=== PATIENT | female | born 1990 | race American Indian/Alaskan Native ===

== ENCOUNTER 2021-09-05 16:06 | Emergency (ER) | payer MEDICAID ==
--- NOTE | 2021-09-05 17:03 | Emergency Department Report ---
ED General Adult HPI - General Chief complaint: Arrhythmia/Palpitations Stated complaint: PALPITATIONS Time Seen by Provider: 09/05/21 16:51 Source: patient, EMS ( EMS documentation not available at time of chart dictation ), RN notes reviewed, old records reviewed Mode of arrival: Stretcher Limitations: No Limitations - History of Present Illness Initial comments: The patient was evaluated in the emergency department for symptoms described in the history of present illness. He/she was evaluated in the context of the global COVID-19 pandemic, which necessitated consideration that the patient might be at risk for infection with the virus that causes COVID-19. Institutional protocols and algorithms that pertain to the evaluation of patients at risk for COVID-19 are in a state of rapid change based on information released by regulatory bodies including the CDC and federal and state organizations. These policies and algorithms were followed during the patient's care in the emergency department. Please note that these policies, procedures and recommendations changed on a rapid basis. This patient is a pleasant and cooperative 31-year-old female who presents to the emergency room today with a complaint of intermittent sensation of painless heart racing which is present for months. The this is a painless sensation. She currently denies headache, neck pain, chest pain, abdominal pain, shortness of breath, nausea, vomiting, diarrhea, urinary symptoms, hematemesis, bright red blood per rectum The patient does reports that she Is a recreational IV heroin abuser. She is interested in detox. She is not homicidal or suicidal. She denies other coingestions. She reports that she has access to clean needles and does not reuse needles. She is not experiencing hallucinations. No fevers or chills. Her primary complaint is intermittent palpitations. She does report that she does not consume caffeinated beverages -: month(s) Consistency: intermittent Improves with: none Worsens with: none Associated Symptoms: denies other symptoms - Related Data Previous Rx's Medication Instructions Recorded Last Taken Type Ondansetron [Zofran Odt] 4 mg PO Q4H #20 tab.rapdis 04/19/13 Unknown Rx Ferrous Sulfate [Feosol 325 MG tab] 325 mg PO BID #60 tablet 09/05/21 Unknown Rx Naloxone HCl [Narcan Nasal [place]] 4 mg NS PRN PRN #1 spray 09/05/21 Unknown Rx Ondansetron [Zofran Odt] 4 mg PO Q8HR PRN #20 tab.rapdis 09/05/21 Unknown Rx cloNIDine [Catapres] 0.1 mg PO BID PRN #30 tablet 09/05/21 Unknown Rx Allergies Allergy/AdvReac Type Severity Reaction Status Date / Time No Known Allergies Allergy Verified 09/05/21 16:29 ED Review of Systems ROS: Stated complaint: PALPITATIONS Other details as noted in HPI Comment: All other systems reviewed and negative Cardiovascular: palpitations ED Past Medical Hx - Past Medical History Hx Asthma: Yes Additional medical history: "hyperinsomnia" - Surgical History Additional Surgical History: stye removal right eye - Social History Smoking Status: Never Smoker Substance Use Type: None - Medications Home Medications: Home Medications Medication Instructions Recorded Confirmed Last Taken Type Ondansetron [Zofran Odt] 4 mg PO Q4H #20 tab.rapdis 04/19/13 Unknown Rx Ferrous Sulfate [Feosol 325 MG tab] 325 mg PO BID #60 tablet 09/05/21 Unknown Rx Naloxone HCl [Narcan Nasal [place]] 4 mg NS PRN PRN #1 spray 09/05/21 Unknown Rx Ondansetron [Zofran Odt] 4 mg PO Q8HR PRN #20 tab.rapdis 09/05/21 Unknown Rx cloNIDine [Catapres] 0.1 mg PO BID PRN #30 tablet 09/05/21 Unknown Rx ED Physical Exam - General Limitations: No Limitations General appearance: alert, in no apparent distress - Head Head exam: Present: atraumatic, normocephalic - Eye Eye exam: Present: normal appearance, EOMI. Absent: nystagmus - ENT ENT exam: Present: normal exam, normal orophraynx, mucous membranes moist, normal external ear exam - Neck Neck exam: Present: normal inspection, full ROM. Absent: tenderness, meningismus - Respiratory Respiratory exam: Present: normal lung sounds bilaterally. Absent: respiratory distress, wheezes, rales, rhonchi, stridor, decreased breath sounds - Cardiovascular Cardiovascular Exam: Present: regular rate, normal rhythm, normal heart sounds. Absent: bradycardia, tachycardia, irregular rhythm, systolic murmur, diastolic murmur, rubs, gallop - GI/Abdominal GI/Abdominal exam: Present: soft. Absent: distended, tenderness, guarding, rebound, rigid, pulsatile mass - Extremities Exam Extremities exam: Present: full ROM, pedal edema, other (2+ pulses noted in the bilateral upper and lower extremities. There is no palpable cord. negative Homans sign. Muscular compartments are soft. The pelvis is stable.). Absent: normal inspection (Track farfan noted to bilateral upper extremities. No evidence of superinfection, redness, pus or streaking.), calf tenderness - Back Exam Back exam: Present: normal inspection, full ROM. Absent: tenderness, CVA tenderness (R), CVA tenderness (L), paraspinal tenderness, vertebral tenderness - Neurological Exam Neurological exam: Present: alert, oriented X3, normal gait, other (No facial droop. Tongue midline. Extraocular movements intact bilaterally. Facial sensation intact to light touch in V1, V2, V3 distribution bilaterally. 5 and a 5 strength in 4 extremities. Sensation intact to light touch in 4 extremities.). Absent: motor sensory deficit - Psychiatric Psychiatric exam: Present: normal affect, normal mood. Absent: homicidal ideation, suicidal ideation - Skin Skin exam: Present: warm, dry, intact. Absent: rash ED Course Vital Signs 09/05/21 09/05/21 09/05/21 16:27 16:49 17:56 Temperature 98.2 F Pulse Rate 97 H 72 Respiratory 18 16 Rate Blood Pressure 131/85 100/63 [Left] O2 Sat by Pulse 100 96 100 Oximetry O2 Sat by Pulse Oximetry [ Digit-Finger] 09/05/21 18:21 Temperature Pulse Rate Respiratory Rate Blood Pressure [Left] O2 Sat by Pulse Oximetry O2 Sat by Pulse 100 Oximetry [ Digit-Finger] - Reevaluation(s) Reevaluation #1: 09/05/21 18:15 Differential diagnosis, including but not limited to: Electrolyte derangement, thyroid derangement, mitral valve prolapse, chronic heroin use, asymptomatic microcytic anemia, encounter for detox. Assessment and plan: 31-year-old female, who is not currently tachycardic, tachypneic or hypoxic, who denies DVT and pulmonary embolism risk factors, who is low risk by Wells criteria for pulmonary embolism, and PERC negative, with no fever, chills, or cardiac murmur, with a primary complaint of intermittent painless palpitations. Laboratory studies show microcytic anemia, likely secondary to diet and lifestyle. Chemistry unremarkable, EKG unremarkable. We have extensively discussed the recommendation to discontinue heroin consumption. I will discharge the patient with as needed Narcan, as needed Zofran, and as needed clonidine. We will also start the patient on iron sulfate tablets, and have instructed her on the need to closely follow-up with outpati ent primary care and/or cardiology, for intermittent tachycardia. She is clinically sober at this time, and does not meet criteria for 1013, 2013, or involuntary confinement. She is interested in pursuing detox. I have requested that mental health provided patient with outpatient detox resources. Patient is observed in this department for hours without clinical decompensation, and is suitable to follow-up as an outpatient. At the moment, she does not appear to have an emergent medical condition present. 09/05/21 19:17 The patient is seen and examined. She is in no acute distress. I discussed all findings with patient. She articulates understanding. All questions answered. Return precautions are reviewed. Start iron sulfate for microcytic anemia. This is likely secondary to diet and lifestyle. Discussed this with the patient. Start clonidine, Zofran. As needed Narcan. Outpatient resources are provided. Return precautions are reviewed. All questions answered - Pulse Oximetry Interpretation Digit-Finger Initial Pulse Oximetry Readin O2 Sat by Pulse Oximetry: 100 Actions Taken: none ED Medical Decision Making - Lab Data Result diagrams: 09/05/21 17:22 09/05/21 17:22 Vital Signs 09/05/21 09/05/21 09/05/21 16:27 16:49 17:56 Temperature 98.2 F Pulse Rate 97 H 72 Respiratory 18 16 Rate Blood Pressure 131/85 100/63 [Left] O2 Sat by Pulse 100 96 100 Oximetry Lab Results 09/05/21 09/05/21 09/05/21 Range/Units 17:22 17:22 17:22 WBC 5.1 (4.5-11.0) K/mm3 RBC 4.23 (3.65-5.03) M/mm3 Hgb 9.5 L (10.1-14.3) gm/dl Hct 29.5 L (30.3-42.9) % MCV 70 L (79-97) fl MCH 23 L (28-32) pg MCHC 32 (30-34) % RDW 19.2 H (13.2-15.2) % Plt Count 225 (140-440) K/mm3 PT 15.3 H (12.2-14.9) Sec. INR 1.06 (0.87-1.13) Sodium 135 L (137-145) mmol/L Potassium 4.0 (3.6-5.0) mmol/L Chloride 100.0 (98-107) mmol/L Carbon Dioxide 24 (22-30) mmol/L Anion Gap 15 mmol/L BUN 9 (7-17) mg/dL Glucose 99 (65-100) mg/dL Calcium 9.1 (8.4-10.2) mg/dL Magnesium 2.40 H (1.7-2.3) mg/dL Total Bilirubin 0.30 (0.1-1.2) mg/dL AST 14 (5-40) units/L ALT 7 (7-56) units/L Alkaline Phosphatase 63 (35-129) units/L Total Creatine Kinase 44 (30-135) units/L Total Protein 9.1 H (6.3-8.2) g/dL Albumin 3.4 L (3.9-5) g/dL Albumin/Globulin Ratio 0.6 % Salicylates (2.8-20.0) mg/dL 09/05/ Range/Units 17:22 WBC (4.5-11.0) K/mm3 RBC (3.65-5.03) M/mm3 Hgb (10.1-14.3) gm/dl Hct (30.3-42.9) % MCV (79-97) fl MCH (28-32) pg MCHC (30-34) % RDW (13.2-15.2) % Plt Count (140-440) K/mm3 PT (12.2-14.9) Sec. INR (0.87-1.13) Sodium (137-145) mmol/L Potassium (3.6-5.0) mmol/L Chloride (98-107) mmol/L Carbon Dioxide (22-30) mmol/L Anion Gap mmol/L BUN (7-17) mg/dL Glucose (65-100) mg/dL Calcium (8.4-10.2) mg/dL Magnesium (1.7-2.3) mg/dL Total Bilirubin (0.1-1.2) mg/dL AST (5-40) units/L ALT (7-56) units/L Alkaline Phosphatase (35-129) units/L Total Creatine Kinase (30-135) units/L Total Protein (6.3-8.2) g/dL Albumin (3.9-5) g/dL Albumin/Globulin Ratio % Salicylates 9.7 (2.8-20.0) mg/dL - EKG Data -: EKG Interpreted by Me EKG shows normal: sinus rhythm Rate: normal - EKG Data When compared to previous EKG there are: previous EKG unavailable 09/05/21 18:14 The EKG is interpreted at 17: 20 Sinus rhythm, with a rate of 80 bpm. Normal axis, normal P wave axis, high left ventricular voltage, intervals are within normal limits. This is not a STEMI. There is no prior for comparison. Critical care attestation.: If time is entered above; I have spent that time in minutes in the direct care of this critically ill patient, excluding procedure time. ED Disposition Clinical Impression: Microcytic anemia, Palpitations, Heroin abuse Disposition: HOME / SELF CARE / HOMELESS Is pt being admited?: No Does the pt Need Aspirin: No Condition: Good Instructions: Preventing Iron Deficiency Anemia, Adult, Finding Treatment for Addiction Additional Instructions: Recommend that patient avoid consumption of heroin, alcohol, tobacco, smoke products. Patient may use the Narcan as needed for opioid overdose. Use the Zofran as ne eded for nausea and vomiting. Take the clonidine as directed/needed for symptoms of opioid withdrawal, including abdominal cramping, nausea, vomiting, diarrhea. Follow-up with outpatient resources that are provided to the patient. Start the iron sulfate supplementation for anemia and presumed iron deficiency. Consume foods that are high in iron, such as green leafy vegetables and protein. Follow-up with a primary care doctor within the next month. Follow-up with a washtub worker helper for heart racing within the next 2 weeks. Long-term consumption of heroin may cause overdose, addiction, and may cause , disability, paralysis, loss of quality of life. Please return to the emergency room right away with new pain, worsened pain, migration of pain, projectile vomiting, change in mental status, confusion, inability tolerate liquid feeds, new, worsened or different symptoms not present on the initial emergency room evaluation Please follow-up with an outpatient mental health specialist within the next week. Avoid consumption of alcohol, tobacco, smoke products and recreational drugs. Please return to the emergency room right away with new pain, worsened pain, migration of pain, projectile vomiting, change in mental status, confusion, inability tolerate liquid feeds, new, worsened or different symptoms not present on the initial emergency room evaluation In case of an emergency, please contact the following numbers: [place] Crisis and Access Line: Number: Crisis Text Line: (Text START) Number: 613932 Suicide Prevention Line: Number: Emergency Number: 911 SUBSTANCE ABUSE PROGRAMS: [facility]: Location: [place], [place] [facility] Address: [address] [place] [address] [facility]: Address: [address] [place] [address] [facility]: Address: [address] [place] [address] [facility]: Address: [address] [place] [address] [facility] Address: [address] [place] [id number]. Please contact above numbers to attempt placement into free based program. Medicaid Programs: [facility]: Address: [address] [place] [address] [facility]: Address: [address] [place] [address] [facility] Agency Contacts To help [facility] Crises (30/09) [place] Crisis Line: Suicide Prevention Line: Crisis Text Line: Text ``START to 362275 Emergency: 911 Outpatient COMMUNITY Behavioral Health Resources: [place]: [facility] [address] [place], [place] [address] [place]: [facility] [address] [place] [address] Friday thru Friday - 8am - 5pm Call to schedule an assessment for mental health and substance abuse programs [facility] Address: [address], [place], [place] Friday thru Friday- 7am-2pm [facility] Address: [address] [place], [place] [address] Friday thru Friday: 8:30AM-5PM Prescriptions: cloNIDine [Catapres] 0.1 mg PO BID PRN #30 tablet PRN Reason: Nausea Ferrous Sulfate [Feosol 325 MG tab] 325 mg PO BID #60 tablet Naloxone HCl [Narcan Nasal [place]] 4 mg NS PRN PRN #1 spray PRN Reason: Opioid Reversal Ondansetron [Zofran Odt] 4 mg PO Q8HR PRN #20 tab.rapdis PRN Reason: Nausea Referrals: [facility] [Provider Group] - 3-5 Days [facility] - 3-5 Days [facility] [Outside] - 3-5 Days [facility] [Outside] - 3-5 Days Forms: Work/School Release Form(ED)
[2021-09-05 17:48] LABS: Hematocrit 29.5 % (30.3-42.9); Hemoglobin 9.5 gm/dl (10.1-14.3); Mean Corpuscular HGB Conc 32 % (30-34); Platelet Count 225 K/mm3 (140-440); Red Blood Count 4.23 M/mm3 (3.65-5.03); Red Cell Distribution Width 19.2 % (13.2-15.2)
[2021-09-05 17:50] LABS: Mean Corpuscular Volume 70 fl (79-97)
[2021-09-05 18:06] LABS: Alanine Aminotransferase 7 units/L (7-56); Albumin 3.4 g/dL (3.9-5); Blood Urea Nitrogen 9 mg/dL (7-17); Calcium 9.1 mg/dL (8.4-10.2); Hemolysis Index 0
[2021-09-05 18:11] LABS: INR 1.06 (0.87-1.13)
[2021-09-05 18:25] LABS: BUN/Creatinine Ratio 13
[2021-09-05 19:28] VITALS: BP 106/58
--- NOTE | 2021-09-06 10:35 | Electrocardiograph Report ---
[facility] Test Date: 2021-09-05 Test Time: 17:20:17 Pat Name: ANTOINETTE ANDERS Department: Room: Gender: F Library Supervisor: LUCAS : 1990 Requested By: GIL AMES Order Number: [id number] Reading MD: Calvin Gillette Measurements Intervals [place] Rate: 80 P: 83 SD: 131 QRS: 58 QRSD: 82 T: 31 QT: 356 QTc: 409 Interpretive Statements Sinus rhythm No previous ECG available for comparison Electronically Signed On 09-06-2021 10:34:41 EDT by Calvin Gillette
== END 2021-09-05 19:35 | disposition home or self-care (01) ==
LOC: ED 16:06
DX: R00.0 Tachycardia, unspecified (principal); F19.10 Other psychoactive substance abuse, uncomplicated; D50.9 Iron deficiency anemia, unspecified; J45.909 Unspecified asthma, uncomplicated; Z98.890 Other specified postprocedural states
CPT/HCPCS: 36415; 80053; 80320; 82550; 83735; 84443; 84702; 85027; 85610; 93005; 99284; G0480